=== PATIENT | female | born 1940 | race Caucasian/White ===

== ENCOUNTER 2016-07-24 06:32 | Inpatient (IN) | payer MEDICARE, BC ==
[2016-07-11 14:33] VITALS: BMI 40.3
[~2016-07-24 06:32] MED LIST: HYDROmorphone 1 MG/ML 1 ML SYRINGE IVP PRN; LIDOCAINE 1% 20 ML VIAL (10MG/ML) FOR IV START INTRADERMA PRN; MIDAZOLAM 2 MG/2 ML VIAL IV PRN
[2016-07-24] MEDS: LACTATED RINGERS 1,000 ML IV SCH (07:24)
[2016-07-24] MEDS ORDERED: LIDOCAINE 1% 20 ML VIAL (10MG/ML) FOR IV START INTRADERMA ONE (07:25)
[2016-07-24] MEDS ORDERED: ONDANSETRON 4 MG/2 ML VIAL IVP ONE (07:28)
[2016-07-24 07:57] LABS: Glucose,Whole Blood 166 mg/dL (75-99)
[2016-07-24] MEDS ORDERED: GLYCOPYRROLATE 0.2 MG/ML 2 ML VIAL ONE (08:01)
[2016-07-24] MEDS ORDERED: WATER FOR INJECTION, STERILE 10 ML VIAL IV ONE (08:01)
[2016-07-24] MEDS ORDERED: ePHEDrine 50 MG/ML 1 ML AMP ONE (08:01)
[2016-07-24] MEDS ORDERED: ceFAZolin 1,000 MG VIAL ONE (08:01)
[2016-07-24] MEDS ORDERED: VECURONIUM 10 MG VIAL IV ONE (08:01)
[2016-07-24] MEDS ORDERED: HYDROmorphone (PF) 1 MG/ML ONE (08:01)
[2016-07-24] MEDS ORDERED: ALBUTEROL INHALER 60 PUFF/8 GM INHALER INHALATION ONE (08:01)
[2016-07-24] MEDS ORDERED: NEOSTIGMINE 1 MG/ML 10 ML VIAL ONE (08:01)
[2016-07-24] MEDS ORDERED: SODIUM CHLORIDE 0.9% IRRIG 1,000 ML BTL IRRIGATION ONE (08:01)
[2016-07-24] MEDS ORDERED: BUPIVACAIN-EPI 0.5%-1:200,000 30 ML VIAL ONE (08:01)
[2016-07-24] MEDS ORDERED: PROPOFOL 10 MG/ML 20 ML VIAL IV ONE (08:01)
[2016-07-24] MEDS ORDERED: MIDAZOLAM 2 MG/2 ML VIAL ONE (08:01)
[2016-07-24] MEDS ORDERED: POLYMYXIN B 500,000 UNIT VIAL ONE (08:01)
[2016-07-24] MEDS ORDERED: LIDOCAINE 1% INJ 10MG/ML (20 ML MDV) ONE (08:01)
[2016-07-24] MEDS ORDERED: SODIUM CHLORIDE 0.9% 100 ML BAG ONE (08:01)
[2016-07-24] MEDS ORDERED: BACITRACIN 50,000 UNIT VIAL ONE (08:01)
[2016-07-24] MEDS ORDERED: fentaNYL (PF) 50 MCG/ML 2 ML AMP ONE (08:01)
[2016-07-24] MEDS ORDERED: SUCCINYLCHOLINE CHLORIDE 100 MG/5 ML SYR IV ONE (08:01)
[2016-07-24] MEDS ORDERED: LIDOCAINE 0.5%-EPI 1:200,000 50 ML VIAL SQ ONE ×2 (08:03)
[2016-07-24] MEDS ORDERED: GELATIN SPONGE,ABSORB (LARGE) 1 EACH SPONGE TOPICAL ONE (08:03)
[2016-07-24] MEDS ORDERED: BUPIVACAIN-EPI 0.5%-1:200,000 30 ML VIAL SQ ONE (08:03)
[2016-07-24] MEDS ORDERED: THROMBIN (BOVINE) 5,000 UNIT VIAL TOPICAL ONE (08:03)
[2016-07-24] MEDS: ceFAZolin 2 GM in SODIUM CHLORIDE 0.9% 100 ML IVPB ONE ×2 (08:10→15:50)
[2016-07-24] MEDS: BACITRACIN 50,000 UNIT, POLYMYXIN B 500,000 UNIT in SODIUM CHLORIDE 0.9% IRRIGATIO 1,00... IRRIGATION ONE ×2 (08:47→15:50)
[2016-07-24] MEDS ORDERED: BENZOCAINE/MENTHOL LOZENG 1 EACH LOZENGE MUCOUS MEM PRN (10:17)
[2016-07-24] MEDS ORDERED: DIAZEPAM 5 MG TAB PO PRN (10:17)
[2016-07-24] MEDS ORDERED: HYDROmorphone 1 MG/ML 1 ML SYRINGE IVP PRN (10:17)
[2016-07-24] MEDS ORDERED: HYDROcodone/APAP 5-325MG 1 EACH TAB PO PRN ×2 (10:18→19:24)
[2016-07-24] MEDS ORDERED: IBUPROFEN 600 MG TAB PO PRN (10:18)
[2016-07-24] MEDS ORDERED: TRIMETHOBENZAMIDE 100 MG/ML 2 ML VIAL IM PRN (10:18)
--- NOTE | 2016-07-24 10:24 | P.OP ---
Date of Procedure: 07/24/16 Preoperative Diagnosis: Chronic low back pain and left lower extremity pain, degenerative disc disease, Successful neurostimulator trial placement Postoperative Diagnosis: Same Anesthesia: GETA Pathology: none sent Condition: stable Disposition: PACU Description of Procedure: DESCRIPTION OF PROCEDURE(S): BRIEF OPERATIVE NOTE Preoperative Diagnosis: Chronic low back pain and lower extremity pain Successful neurostimulator trial Degenerative disc disease Scoliosis Postoperative Diagnosis:Same Procedure: Laminectomy at T9 10 placement of neurostimulator device from T7 to T10 Placement of battery pack through separate incision at left gluteal area Use of C-arm guidance Surgeon: Dr. Grimes Botanical Technical Officer: Jimbo Medrano is present throughout the entire the case persistence during positioning, dissection, exposure, visualization, and all crucial elements of the case as well as closure. Anesthesia: General anesthesia Estimated blood loss:Approximate 75 mL Complications: None apparent Components implanted:[employer] neurostimulator for column surgical paddle with rechargeable battery pack Disposition: To recovery room in good stable condition. OPERATIVE INDICATIONS The patient has been having issues in their lower back and lower extremities. She has long history of lumbar spine issues and lower extremity issues. The patient has history of scoliosis and chronic low back pain with degenerative disc disease. The patient has been through conservative treatment. She has been through multiple rehab programs. She has been through extensive intervention conservative management including placement of a neurostimulator trial device. She had good results with the neurostimulator trial with significant relief of her pain symptoms at her back and her lower extremities and was interested in pursuing permanent paddle lead of her neurostimulator. We discussed various treatment options including surgery, and the patient wishes to proceed with surgery We discussed the risk, patient's alternatives and benefits of surgery including but not limited to, risk of bleeding risk of infection, risk of need for further surgery, risk of decreased, loss of motion, loss of function, nerve damage, paralysis, heart attack, blindness and . OPERATIVE SUMMARY After discussing all the risks, patient alternatives and benefits at length, the patient elected to proceed with surgical intervention, signed informed consent, and presented for their procedure. The patient was seen and examined in the preoperative holding area and the surgical site was marked. The patient was given antibiotics and brought to the operating room. The patient was sedated and intubated by anesthesia in standard fashion. The patient was positioned on to the operating room table in a prone position on the appropriate frame which was well-padded and well molded. We were careful to pad any bony prominences and pressure points. We were careful to maintain the patient's cervical spine and good neutral alignment and position throughout. The patient was prepped and draped in a normal standard fashion. An appropriate timeout and keystone protocol performed. We were able to proceed with the surgery. Fluoroscopy was utilized to establish the appropriate level. The local wound area was infiltrated with local anesthetic. C-arm was used to establish the appropriate levels at her thoracic and lumbar spine. We're able to easily counted up the spinal levels and establish a incision site over T9 10. An incision made longitudinally over the appropriate levels and dissection was taken down subcutaneously to the level of fascia which was then split at the midline. Dissection was taken over the lamina and intraoperative fluoroscopy was utilized to establish the appropriate level with a marker. With the appropriate level positively confirmed as able to establish a laminectomy with accommodation of curettes, Kerrison rongeurs, and a matchstick drill. The wound was copiously irrigated and suctioned dry as had been done periodically throughout the case. I performed a laminectomy with a combination of curettes and a high-speed bur and [place]ison rongeurs. Portions of the ligamentum flavum were taken down to expose the dura. I was able to establish a channel to establish the pedicle device placement. I used a hockey stick type soft dissection device at the epidural space to establish position. The position was checked with C-arm and found to be in good alignment and good position at the midline. I was able to then use the permanent nurse to ri later paddle and place it through the laminectomy site at the epidural space dorsally and extend cephalad. C-arm images were taken which showed good midline position. I was able to manipulate the paddle lead to the appropriate position behind T7 down to T9. Imaging was checked multiple times to establish appropriate alignment and position of the paddle lead near midline at the appropriate levels to the disc at T6 7 and at The top of T7 and extending down behind T8 to T9. We had good position near the midline just off to the left. There is no evidence of dural tear or leak. Good hemostasis maintained. The wound was copiously irrigated and suctioned dry. I then place the appropriate anchors over the wires. They were tightened down appropriately. And I used transosseous and trans-ligamentous suture to anchor the leads down at the spinous process. There were checked and found to be stable. Images were again taken which showed good alignment and good position without any movement. I then turned my attention to the placement for the battery pack. A small incision was made over the left gluteal area approximately 4 cm in length and a subcutaneous pocket was established approximately 1 cm deep to the skin level. The wound was copiously irrigated and suctioned dry. We have good hemostasis. I tested the battery pack inside the pocket and it had good fit without any tension. I used appropriate tunneling device to establish a subcu tunnel from the battery pack site up to the thoracic incision site. The wires were passed and cleaned and placed into the battery pack appropriately all of the wires were torqued down appropriately and secured. The battery pack was placed into the pocket and tested and found to have good function. The wounds were irrigated and suctioned dry. The wires were coiled appropriately placed behind the battery pack and the battery pack was placed in the pocket. We'll proceed with closure at that space. The wires at the thoracic area were coiled at the subcutaneous space and place the cup subcutaneous space where a close that appropriately as well. Final images were taken which showed excellent alignment and position of the paddle lead and a full circuit to the battery pack. We were able to proceed with closure. The fascia was closed for a watertight closure. The subcuticular tissue was closed with absorbable suture. The wounds was cleaned and dried and dressed with the appropriate dressing. The drapes were broken down. The patient was gently rolled back onto their hospital bed being careful to maintain their cervical spine and good neutral alignment and position. They were woken up by anesthesia, extubated, and brought to the recovery room in good stable condition. The patient will be admitted to the hospital for observation and for appropriate postoperative care, medical management and monitoring. We will continue to follow them closely about the postoperative course.
--- NOTE | 2016-07-24 11:12 | FL ---
FLUOROSCOPY 46 seconds of fluoroscopy time were utilized during placement of a neural stimulator. 3 images docume nt the procedure.
[2016-07-24] MEDS ORDERED: LABETALOL SYRINGE 5 MG/ML IVP ONE (11:21)
[2016-07-24 11:38] LABS: Glucose,Whole Blood 205 mg/dL (75-99)
[2016-07-24] MEDS: SODIUM CHLORIDE 0.9% 1,000 ML IV SCH ×2 (11:40→23:30)
[2016-07-24] MEDS: HYDROmorphone 1 MG/ML 1 ML SYRINGE IVP PRN ×3 (13:33→23:30)
[2016-07-24] MEDS: HYDROcodone/APAP 5-325MG 1 EACH TAB PO PRN ×2 (15:41→21:50)
[2016-07-24] MEDS: ceFAZolin 2 GM in SODIUM CHLORIDE 0.9% 100 ML IVPB SCH ×2 (15:46→23:30)
[2016-07-24] MEDS ORDERED: DOCUSATE 100 MG CAP PO PRN (19:24)
[2016-07-24] MEDS ORDERED: MECLIZINE 25 MG TAB PO PRN (19:24)
[2016-07-24] MEDS ORDERED: ONDANSETRON 4 MG TAB PO PRN (19:24)
[2016-07-24] MEDS ORDERED: CALCITRIOL 0.25 MCG CAP PO SCH (19:30)
[2016-07-24] MEDS: ALBUTEROL NEBULIZED 2.5 MG/3 ML INHALATION SCH (20:37)
[2016-07-24] MEDS: CALCIUM ACETATE 667 MG CAP PO SCH ×2 (21:39→22:09)
[2016-07-24] MEDS: ALPRAZolam 0.25 MG TAB PO SCH (21:51)
[2016-07-24] MEDS: ATORVASTATIN 80 MG TAB PO SCH (22:07)
[2016-07-24] MEDS: GABAPENTIN 100 MG CAP PO SCH (22:08)
[2016-07-24] MEDS: CALCITRIOL 0.25 MCG CAP PO SCH (22:10)
[2016-07-24] MEDS: HEPARIN SODIUM,PORCINE 5,000 UNIT/ML 1 ML VIAL SQ SCH (22:13)
[2016-07-24] MEDS: INSULIN LISPRO (humaLOG) 300 UNIT/3 ML VIAL SQ SCH (22:13)
[2016-07-25] MEDS: HYDROmorphone 1 MG/ML 1 ML SYRINGE IVP PRN (06:01)
[2016-07-25] MEDS: LEVOTHYROXINE 137 MCG TAB PO SCH (06:01)
[2016-07-25] MEDS: ALBUTEROL NEBULIZED 2.5 MG/3 ML INHALATION SCH ×3 (07:08→19:16)
[2016-07-25 07:20] LABS: Basophils # (A) 0.1 k/uL (0-0.2); Basophils % (A) 1 %; CH 29.1; CHCM 32.4; Eosinophils % (A) 0 %; HDW 2.86; HGB 10.8 gm/dL (11.4-16.0); Luc # (Auto) 0.12; Luc % (Auto) 1; Lymphocytes # (A) 1.4 k/uL (1.0-4.8); Lymphocytes % (A) 11 %; MCH 28.5 pg (25.0-35.0); MCHC 31.6 g/dL (31.0-37.0); MCV 90.3 fL (80.0-100.0); Mean Platelet Volume 7.4; Monocytes # (A) 0.7 k/uL (0-1.0); Monocytes % (A) 6 %; Neutrophils # (A) 10.1 k/uL (1.3-7.7); Neutrophils % (A) 81 %; RBC 3.77 m/uL (3.80-5.40); RDW 14.4 % (11.5-15.5); WBC 12.4 k/uL (3.8-10.6); WBC (Perox) 13.17
[2016-07-25 07:34] LABS: Calcium 8.8 mg/dL (8.4-10.2); Potassium 4.2 mmol/L (3.5-5.1)
--- NOTE | 2016-07-25 08:20 | CONS ---
DATE OF CONSULTATION: REASON FOR CONSULTATION: Advice regarding COPD and other medical issues requested by Dr. Grimes. HISTORY OF PRESENT ILLNESS: This 76-year-old woman with a past medical history of COPD, history of diabetes mellitus, history of DVT, GERD, hyperlipidemia, hypertension, sleep apnea, history of heart murmur, history of cardiac catheterization and hysterectomy being followed by Dr. Garces in the outpatient setting and patient was admitted after laminectomy and placement of neurotransmitter device from T7 to T10, placement of battery pack through a separate incision gluteal area using C-arm guidance. There is no history of any fevers. No history of headache, loss of consciousness or seizures. PAST MEDICAL HISTORY: COPD, diabetes mellitus, DVT, history of GERD, hyperlipidemia, hypertension, history of sleep apnea, hypothyroidism, hysterectomy, history of anxiety and depression, not otherwise specified. Medications prior to admission include home medications are: 1. Albuterol 2.5 q.i.d. and p.r.n. 2. Fentanyl patch 50 mcg q.72 hours. 3. Calcitriol 0.5 Friday, Friday, Friday, , Friday. 4. PhosLo 667 p.o. t.i.d. 5. Lipitor 80 mg q.h.s. 6. Antivert 25 mg t.i.d. p.r.n. 7. Lantus 30 units subcu q.a.m. 8. NovoLog FlexPen p.r.n. 9. Zofran 4 mg t.i.d. p.r.n. 10. [place] 5 mg b.i.d. p.r.n. 11. Dok 100 mg daily. 12. Synthroid 137 mcg p.o. daily. 13. Prilosec 40 mg p.o. daily. 14. Xanax 0.25 mg p.o. t.i.d. 15. Nifedipine ER 60 mg p.o. daily. 16. Neurontin 100 mg p.o. t.i.d. 17. Hydrocodone 5 mg q.8 p.r.n. ALLERGIES: ACETAMINOPHEN, CODEINE, MEPERIDINE, MORPHINE and PROPOXYPHENE. FAMILY HISTORY: History of cancer and DVT in the family. SOCIAL HISTORY: No history of smoking, no history alcohol intake. REVIEW OF SYSTEMS: ENT: No diminished hearing or vision. CARDIOVASCULAR SYSTEM: No angina or palpitations. RESPIRATORY: As mentioned earlier.. GI: No nausea. : No dysuria. NERVOUS SYSTEM: No numbness or weakness. ALLERGY/IMMUNOLOGY: No asthma or hayfever. MUSCULOSKELETAL: As mentioned earlier. HEMATOLOGY/ONCOLOGY: noted ENDOCRINE: Hypothyroidism and diabetes. CONSTITUTIONAL: As mentioned earlier. DERMATOLOGY: Negative. RHEUMATOLOGY: As mentioned earlier. PSYCHIATRY: As mentioned earlier. PHYSICAL EXAMINATION: The patient is alert and oriented x3. Pulse is 62, blood pressure 159/73, respirations 16, temperature 98 degrees, pulse ox 95% on room air. HEENT: Conjunctivae normal. NECK: No jugular venous distention. CARDIOVASCULAR: S1 and S2, muffled. RESPIRATORY: Breath sounds diminished at the bases. A few scattered rhonchi, no crackles. ABDOMEN: Soft, obese, nontender. No mass palpable. LEGS: No edema or no swelling. NERVOUS SYSTEM: Higher function as mentioned earlier. Moves all 4 limbs. No focal motor or sensory deficits. LYMPHATICS: No lymphadenopathy of neck, axillae or groin. SKIN: No ulcers, rashes or bleeding. LABS: Glucose 205. ASSESSMENT: 1. Status post laminectomy to be T9-10 and placement of neurotransmitter from T7 to T10 with placement of battery pack. 2. History of chronic obstructive pulmonary disease. 3. Diabetes mellitus type 2. 4. History of deep venous thrombosis. 5. History of gastroesophageal reflux disease. 6. Hypertension. 7. Hyperlipidemia. 8. Sleep apnea. 9. Hypothyroidism. 10. History of cardiac murmur. 11. History of constipation. 12. History of hysterectomy. 13. History of anxiety and depression, not otherwise specified. 14. FULL CODE. 15. Obesity with body mass index of 40.4. RECOMMENDATIONS AND DISCUSSION: This 76-year-old woman who presented with multiple complex medical issues. Will monitor the patient closely. Continue the current medications. Continue symptomatic treatment. Recommend resume the home medications. Otherwise DVT prophylaxis. Monitor blood sugars closely. Will follow the patient closely. The patient will be asked to follow up with the primary physician closely after discharge. Thank you Dr. Grimes for letting us participate in the care of this patient. [facility] MEDICAL CENTERSanjay
[2016-07-25] MEDS: CALCIUM ACETATE 667 MG CAP PO SCH ×3 (08:38→18:07)
[2016-07-25] MEDS: HYDROcodone/APAP 5-325MG 1 EACH TAB PO PRN ×3 (08:38→20:06)
[2016-07-25] MEDS: GABAPENTIN 100 MG CAP PO SCH ×3 (08:42→21:42)
[2016-07-25] MEDS: FLUoxetine HCL 20 MG CAP PO SCH (08:42)
[2016-07-25] MEDS: INSULIN LISPRO (humaLOG) 300 UNIT/3 ML VIAL SQ SCH ×4 (08:57→21:41)
[2016-07-25 09:03] LABS: Hemoglobin A1C 6.9 % (4.2-6.1)
[2016-07-25] MEDS: HEPARIN SODIUM,PORCINE 5,000 UNIT/ML 1 ML VIAL SQ SCH ×3 (09:05→23:34)
[2016-07-25] MEDS: INSULIN GLARGINE 100 UNIT/ML 10 ML VIAL SQ SCH (09:14)
[2016-07-25] MEDS: LACTATED RINGERS 1,000 ML IV SCH (09:16)
--- NOTE | 2016-07-25 10:14 | P.PN ---
Progress Note - Text Postoperative day #1 Patient is seen and examined today at bedside. Patient is having significant pain around her surgical site. She is having great difficulty with any mobilization and we're having some difficulty controlling her pain thus far. She denies nausea or vomiting. They tried to work with her to do some programming of the device yesterday but she was unable to do so she says because she was too tired. Physical Exam Afebrile with stable vital signs Abdomen is soft nontender. Chest has good excursion deep and space expiration The incision site is clean dry and intact. No erythema there is no purulence. There is no fluctuance there is no evidence of any infection at her back or her right gluteal area Extremities have not had neurologic change from prior to surgery. Calves and thighs were soft nontender without evidence of DVT. Assessment/Plan Postoperative day #1 status post laminectomy at T9 10 with placement of neurostimulator device and battery pack for her chronic back and lower extremity pain with a positive neurostimulator trial Patient is progressing quite slowly from her surgery. It is difficult to say if she has troubles with pain tolerance and general or if she is having severe spasms contributing to her symptoms at this point. Medicine is seeing her as well for management. The incisions. A be healing appropriately without evidence of any infection. Once her pain is controlled it is okay from a spine standpoint for her to be charged home but this will likely be today. We'll see how she is doing with her pain control tomorrow. We will continue to increase the patient's mobilization with therapy. We will continue pain control with oral or IV medications. We'll continue to follow patient closely.
[2016-07-25] MEDS: ALPRAZolam 0.25 MG TAB PO SCH ×3 (10:34→21:42)
[2016-07-25] MEDS: SODIUM CHLORIDE 0.9% 1,000 ML IV SCH ×3 (12:57→23:35)
[2016-07-25 13:05] LABS: Glucose,Whole Blood 142 mg/dL (75-99)
--- NOTE | 2016-07-25 15:44 | PN ---
DATE OF SERVICE: 07/25/2016 This 76-year-old woman was admitted with back surgery also had a history of chronic obstructive pulmonary disease. The patient also had history of renal failure, which is apparently steroid dependent and Dr. Lubin was giving steroids to patient temporarily previously. The creatinine was up to 10 according to her. Currently the new creatinine is 3.10. White count is 12.4. There is no history of fever, rigors, chills. No history of headache, loss of consciousness, seizures. PAST MEDICAL HISTORY: Reviewed. REVIEW OF SYSTEMS: CARDIOVASCULAR: No angina. RESPIRATORY: As mentioned earlier. GI: No nausea. : As mentioned earlier. NERVOUS SYSTEM: No numbness or weakness. Current medications reviewed and include [place] 5 mg, Ventolin, Motrin, Xanax, Lipitor, Cepacol, Rocaltrol, PhosLo, Valium, Colace, Prozac, Neurontin, Heparin, Dilaudid, Lantus, Lactated Ringers, Synthroid, Antivert, Procardia XL, Zofran, Tigan. PHYSICAL EXAMINATION: The patient is alert and oriented x3. Pulse 76, blood pressure 160/83, respirations 18, temperature 99 degrees, pulse ox 90% on room air. HEENT: Conjunctivae normal. NECK: No jugular venous distention. CARDIOVASCULAR: S1 and S2, muffled. RESPIRATORY: Breath sounds diminished at the bases. A few scattered rhonchi. No crackles. ABDOMEN: Soft, nontender. No mass palpable. LEGS: No edema, no swelling. NERVOUS SYSTEM: No focal deficits. BACK: Status post surgery. LABS: WBC 12, hemoglobin 10.8, creatinine is 3.10. ASSESSMENT: 1. Status post laminectomy T9 replacement of neurotransmitter for 7-10 with placement of battery pack. 2. History of chronic obstructive pulmonary disease. 3. Renal failure, possibly acute on chronic. 4. Diabetes mellitus type 2. 5. History of deep venous thrombosis. 6. History of gastroesophageal reflux disease. 7. Hypertension. 8. Hyperlipidemia. 9. Sleep apnea. 10. Hypothyroidism. 11. History of cardiac murmur. 12. History of constipation. 13. History of hysterectomy. 14. History of anxiety, depression, not otherwise specified. 15. Obesity, body mass index of 40.4. 16. FULL CODE. RECOMMENDATIONS AND DISCUSSION: I recommend to continue the current medications, continue monitoring and symptomatic treatment. Otherwise I recommend a UA with micro. Otherwise, repeat creatinine. Nephrology consultation if okay with Dr. Grimes. Otherwise, continue to monitor. Further recommendations to follow. MTDD
[2016-07-25 17:19] LABS: Glucose,Whole Blood 155 mg/dL (75-99)
[2016-07-25] MEDS: CALCITRIOL 0.25 MCG CAP PO SCH (18:07)
[2016-07-25] MEDS: ATORVASTATIN 80 MG TAB PO SCH (20:08)
[2016-07-25 21:27] LABS: Glucose,Whole Blood 169 mg/dL (75-99)
[2016-07-25 21:52] LABS: Appearance,Urine Clear (Clear); Bilirubin,Urine Negative (Negative); Glucose,Urine (UA) Negative (Negative); Ketones,Urine Negative (Negative); Leukocyte Esterase,Urine Small (Negative); Nitrite,Urine Negative (Negative); PH, Urine 5.5 (5.0-8.0); Particle Count 1313; Protein,Urine Trace (Negative); RBC,Urine 8 /hpf (0-5); Specific Gravity,Urine 1.008 (1.001-1.035); Squamous Epithelial Cell,Urine 3 /hpf (0-4); UA Billing (MACRO vs. MICRO) MICRO; Urobilinogen,Urine <2.0 mg/dL (<2.0); WBC,Urine 6 /hpf (0-5)
[2016-07-26] MEDS: HYDROcodone/APAP 5-325MG 1 EACH TAB PO PRN ×5 (02:36→21:42)
[2016-07-26] MEDS: LACTATED RINGERS 1,000 ML IV SCH (03:01)
[2016-07-26] MEDS: LEVOTHYROXINE 137 MCG TAB PO SCH (05:47)
[2016-07-26 07:13] LABS: Basophils # (A) 0.1 k/uL (0-0.2); Basophils % (A) 1 %; CH 29.3; CHCM 32.5; Eosinophils # (A) 0.2 k/uL (0-0.7); Eosinophils % (A) 2 %; HCT 32.5 % (34.0-46.0); HDW 2.74; HGB 10.2 gm/dL (11.4-16.0); Luc # (Auto) 0.12; Luc % (Auto) 1; Lymphocytes # (A) 1.9 k/uL (1.0-4.8); Lymphocytes % (A) 20 %; MCH 28.3 pg (25.0-35.0); MCHC 31.2 g/dL (31.0-37.0); MCV 90.8 fL (80.0-100.0); Mean Platelet Volume 7.8; Monocytes # (A) 0.8 k/uL (0-1.0); Monocytes % (A) 8 %; Neutrophils # (A) 6.5 k/uL (1.3-7.7); Neutrophils % (A) 68 %; RBC 3.58 m/uL (3.80-5.40); RDW 14.2 % (11.5-15.5); WBC 9.6 k/uL (3.8-10.6); WBC (Perox) 9.85
[2016-07-26 07:23] LABS: Calcium 8.6 mg/dL (8.4-10.2); Potassium 3.7 mmol/L (3.5-5.1)
[2016-07-26 07:28] LABS: Glucose,Whole Blood 126 mg/dL (75-99)
[2016-07-26] MEDS: INSULIN GLARGINE 100 UNIT/ML 10 ML VIAL SQ SCH (07:50)
[2016-07-26] MEDS: HEPARIN SODIUM,PORCINE 5,000 UNIT/ML 1 ML VIAL SQ SCH ×2 (07:51→17:02)
[2016-07-26] MEDS: GABAPENTIN 100 MG CAP PO SCH ×3 (07:53→20:51)
[2016-07-26] MEDS: FLUoxetine HCL 20 MG CAP PO SCH (07:53)
[2016-07-26] MEDS: ALPRAZolam 0.25 MG TAB PO SCH ×3 (07:53→20:56)
[2016-07-26] MEDS: CALCIUM ACETATE 667 MG CAP PO SCH ×3 (07:54→17:00)
[2016-07-26] MEDS: INSULIN LISPRO (humaLOG) 300 UNIT/3 ML VIAL SQ SCH ×4 (08:06→21:42)
[2016-07-26] MEDS: ALBUTEROL NEBULIZED 2.5 MG/3 ML INHALATION SCH ×3 (08:27→20:35)
--- NOTE | 2016-07-26 09:00 | P.PN ---
Progress Note - Text Orthopedic Spine Patient is a pleasant 76-year-old female who is seen and examined at the bedside following T9-10 laminectomy with neuro stimulator placement performed on Friday. Postsurgically, patient has significant difficulty with mobilization and pain at the surgical site. She states she has not been able to ambulate. She states she was ambulating previously without significant difficulty. Following surgery she has been a 2-3 person lift assist. She states she has continued to have significant pain at the surgical site. She states she is has difficulty staying awake as well. We discussed this most likely due to her pain medication following surgical intervention. She's been seen exam by Dr. Dickson gongora. It's also been discussed that she may need discharge to extended care facility prior to returning home. We'll plan to make her inpatient with plans for possible discharge this coming Friday, 2016. Patient also has been seen and examined by nephrology for further evaluation for her kidneys she had a creatinine level at 3.1 on 07/25/2016 and 2.97 on 07/26/2016. Physical therapy will continue to work with the patient to increase her mobility and ambulation. Currently does not complain of nausea, vomiting, fever, or chills. Patient states pain has been adequately controlled. Patient is eating and voiding freely without difficulty. Physical Exam Thoracolumbar Spine: Status post surgical day number 2 Patient is awake, alert, and oriented 3 Vital signs stable Good chest excursion with deep inspiration and expiration Abdomen soft nontender Dorsiflexion, plantarflexion, and extensor hallucis longus positive sustained bilaterally No signs or symptoms of DVT; no calf pain; pneumatic cuffs intact bilateral lower extremities Dressing is clean, dry, and intact; no erythema, purulence, or signs of infection over the thoracic spine and over the left hip Neurovascularly intact bilaterally lower extremities Assessment: Status post T9-10 laminectomy and neuro stimulator placement with battery pack placement over the left hip Thoracic back pain Difficulty with ambulation Plan: 1. Ambulate as tolerated; work with Physical Therapy to increase mobilization 2. Continue pain control with IV and oral medications 3. Dressing to remain intact over the thoracic spine and left hip; we will plan to change dressings prior to dicharge 4. Medical management and nephrology can continue to manage patient for patient 's other medical issues 5. We will continue to follow the patient closely; patient will most likely need rehab at discharge given her significant difficulty with mobility and ambulation postsurgically; we'll plan to change her status from 23 hour observation to inpatient status with plans for discharge this coming Friday, 03/2017 6. Patient can follow-up with Jimbo Palomares PA-C or Dr. Matthew Grimes at [facility] in 2-3 weeks following discharge 7. I have discussed this patient and detail with Dr. Matthew Grimes and he agrees with this plan
[2016-07-26 11:35] LABS: Glucose,Whole Blood 153 mg/dL (75-99)
--- NOTE | 2016-07-26 16:16 | PN ---
DATE OF SERVICE: 07/26/2016 This 76-year-old woman, who was admitted after laminectomy and back surgery, also had chronic obstructive pulmonary disease. Patient also had renal failure. Receiving IV fluids. With IV fluids creatinine is slightly improving at this time. The patient has been closely monitored. Patient had a steroid responsive kidney disease recently. PHYSICAL EXAMINATION: The patient is alert and oriented x3. Pulse is 60, blood pressure is 130/60, respirations 16, temperature 97 degrees, pulse ox 94% on room air. HEENT: Conjunctivae normal. NECK: No jugular venous distention. CARDIOVASCULAR: S1 and S2, muffled. RESPIRATORY: Breath sounds diminished at the bases. No rhonchi, no crackles. ABDOMEN: Soft, obese, nontender. No mass palpable. LEGS: No edema, no swelling. BACK: Status post surgery. LABS: Hemoglobin 10.2, creatinine is 2.97. Accu-Cheks are noted. UA noted. ASSESSMENT: 1. Status post laminectomy T9 and placement of neurotransmitter 7 to 10 with placement of battery pack. 2. History of chronic obstructive pulmonary disease. 3. Renal failure, possibly acute on chronic with chronic kidney disease stage III. 4. Steroid response renal failure. 5. Diabetes mellitus type 2. 6. History of deep venous thrombosis. 7. History of gastroesophageal reflux disease. 8. Hypertension. 9. Hyperlipidemia. 10. Sleep apnea. 11. Hypothyroidism. 12. History of cardiac murmur. 13. History of constipation. 14. History of hysterectomy. 15. History of anxiety and depression, not otherwise specified. 16. Obesity with a body mass index of 40.4. 17. FULL CODE. RECOMMENDATIONS AND DISCUSSION: This 76-year-old woman who presented with multiple complex medical issues, we will monitor the patient closely. Continue the current medications. Continue symptomatic treatment. Repeat labs. Continue the IV fluids. Nephrology evaluation. Closely follow with Orthopedic Surgery. The rest of the medications are recommended by Orthopedic Surgery. Further recommendations to follow.
[2016-07-26] MEDS: SODIUM CHLORIDE 0.9% 1,000 ML IV SCH ×2 (16:44→17:33)
[2016-07-26 16:57] LABS: Glucose,Whole Blood 116 mg/dL (75-99)
[2016-07-26] MEDS: CALCITRIOL 0.25 MCG CAP PO SCH (17:01)
--- NOTE | 2016-07-26 19:42 | CONS ---
DATE OF CONSULTATION: REASON FOR CONSULTATION: Renal failure. HISTORY OF PRESENT ILLNESS: Patient is a 76-year-old female who has a history of chronic kidney disease, NKF stage IV to V. She is status post laminectomy at T9 with placement of neurotransmitter and placement of battery pack. Patient is currently comfortable. Her baseline creatinine around 3 mg/dL. She follows with Dr. Gardner as outpatient. Currently she has good urine output. Patient is maintained on IV fluids. Her serum creatinine today was 2.97. PAST MEDICAL HISTORY: 1. CKD, stage IV to V, with a history of acute kidney injury requiring steroids. 2. Type 2 diabetes. 3. History of DVT. 4. History of gastroesophageal reflux disease. 5. Hypothyroidism. 6. Hysterectomy. 7. History of anxiety. 8. Depression. Medications prior to admission included: 1. Albuterol. 2. Calcitriol. 3. PhosLo. 4. Lipitor. 5. Antivert. 6. Insulin. 7. Zofran. 8. [place]. 9. Synthroid. 10. Prilosec. 11. Nifedipine. 12. Neurontin. 13. [place]. ALLERGIES include: 1. ACETAMINOPHEN. 2. CODEINE. 3. MEPERIDINE. 4. MORPHINE. 5. DEXTROPROPOXYPHENE. SOCIAL HISTORY: Negative for smoking, drug abuse or alcohol abuse. REVIEW OF SYSTEMS: Negative for fever, chills, nausea or vomiting. No significant chest pains or significant shortness of breath noted. Patient has good urine output. On examination, blood pressure is 145/63, heart rate 68 per minute. She is afebrile. EXAMINATION OF THE HEART: S1 and S2. EXAMINATION OF THE LUNGS: Bilateral breath sounds are heard. Decreased breath sounds in bases. ABDOMEN: Soft, nontender. Examination of lower extremities shows trace edema bilaterally. RESEARCH DEVELOPMENT MANAGER exam is grossly intact. Labs show sodium of 145, potassium 3.7, chloride 111, BUN 31, serum creatinine 2.97. Hemoglobin 10.2 grams/dL. ASSESSMENT: 1. Chronic kidney disease, stage IV to V. Renal function currently at baseline. Decrease IV fluids to avoid volume overload. 2. Status post T9-10 laminectomy with neurostimulator placement. 3. Chronic kidney disease bone mineral disorder, maintained on Rocaltrol, which we can continue. Serum calcium is at 8.6 mg/dL. 4. Anemia of chronic disease. PLAN: Decrease IV fluids. Continue to avoid nephrotoxic agents. Patient will follow up as outpatient once she is discharged from the hospital. Once good oral intake is maintained, we will discharge the IV fluids. Thank you for this consultation.
[2016-07-26] MEDS: ATORVASTATIN 80 MG TAB PO SCH (20:51)
[2016-07-26 21:22] LABS: Glucose,Whole Blood 215 mg/dL (75-99)
[2016-07-27] MEDS: HEPARIN SODIUM,PORCINE 5,000 UNIT/ML 1 ML VIAL SQ SCH ×4 (00:27→23:29)
[2016-07-27] MEDS: HYDROcodone/APAP 5-325MG 1 EACH TAB PO PRN ×4 (05:13→19:46)
[2016-07-27] MEDS: LEVOTHYROXINE 137 MCG TAB PO SCH (05:13)
--- NOTE | 2016-07-27 06:44 | P.PN ---
Subjective Principal diagnosis: Status post T9 10 laminectomy with neurostim placement This is a pleasant 76-year-old female who is status post T9 10 laminectomy with neural stimulator placement. Today's postoperative day #3. The patient is seen and evaluated at bedside today. She apparently has been having some difficulty with ambulation. At this point they're planning for rehab placement due to her difficulties with mobilization. She seen and evaluated at bedside. She has no new complaints. She states that she still having difficulty walking. She otherwise has no other new complaints at this time. Objective - Vital Signs Vital signs: Vital Signs Temp 98.2 F 07/27/16 02:49 Pulse 66 07/27/16 02:49 Resp 14 07/27/16 02:49 BP 135/61 07/27/16 02:49 Pulse Ox 94 L 07/27/16 02:49 Intake & Output 07/26/16 07/26/16 07/27/16 06:59 18:59 06:59 Intake Total 1800 1280 630 Output Total 200 450 Balance 1600 830 630 Weight 113.398 kg Intake: Intake, IV Titration 1800 1040 630 Amount Sodium Chloride 0.9% 1, 1800 1040 630 000 ml @ 70 mls/hr IV . [id number] [facility] Rx#:[id number] Oral 240 Output: Urine 200 450 Other: Voiding Method Bedside Commode Bedside Commode # Voids 1 1 2 - Exam The patient is alert and orientated 3. Vital signs are stable. Breathing appears nonlabored. Dressing is clean dry and intact with no signs of drainage. She has sustained dorsal flexion, plantar flexion extensor hallux longus. She is able to lift each leg up off the bed. Sensation and circulatory status is intact to the patient's lower extremities. - Labs CBC & Chem 7: 07/26/16 06:43 07/26/16 06:43 Labs: Abnormal Lab Results - Last 24 Hours (Table) 07/26/16 07/26/16 07/26/16 Range/Units 06:43 06:43 07:23 RBC 3.58 L (3.80-5.40) m/uL Hgb 10.2 L (11.4-16.0) gm/dL Hct 32.5 L (34.0-46.0) % Chloride 111 H (98-107) mmol/L BUN 31 H (7-17) mg/dL Creatinine 2.97 H (0.52-1.04) mg/dL Glucose 129 H (74-99) mg/dL POC Glucose (mg/dL) 126 H (75-99) mg/dL 07/26/16 07/26/16 07/26/16 Range/Units 11:32 16:55 21:19 RBC (3.80-5.40) m/uL Hgb (11.4-16.0) gm/dL Hct (34.0-46.0) % Chloride (98-107) mmol/L BUN (7-17) mg/dL Creatinine (0.52-1.04) mg/dL Glucose (74-99) mg/dL POC Glucose (mg/dL) 153 H 116 H 215 H (75-99) mg/dL Assessment and Plan Plan: The patient is status post T9 10 laminectomy with neurostim placement. She is having difficulty with ambulation at this point. She is to continue physical therapy to increase her mobilization. Continue with pain control. Plan for transfer to rehab likely on Friday.
[2016-07-27 07:27] LABS: Basophils % (A) 1 %; CH 29.4; CHCM 32.4; Eosinophils # (A) 0.4 k/uL (0-0.7); Eosinophils % (A) 4 %; HCT 32.4 % (34.0-46.0); HDW 2.82; HGB 10.2 gm/dL (11.4-16.0); Luc % (Auto) 1; Lymphocytes # (A) 1.2 k/uL (1.0-4.8); Lymphocytes % (A) 14 %; MCH 28.7 pg (25.0-35.0); MCHC 31.5 g/dL (31.0-37.0); MCV 91.3 fL (80.0-100.0); Mean Platelet Volume 7.9; Monocytes # (A) 0.6 k/uL (0-1.0); Monocytes % (A) 6 %; Neutrophils # (A) 6.8 k/uL (1.3-7.7); Neutrophils % (A) 74 %; RBC 3.54 m/uL (3.80-5.40); RDW 14.4 % (11.5-15.5); WBC 9.1 k/uL (3.8-10.6); WBC (Perox) 9.21
[2016-07-27 07:32] LABS: Glucose,Whole Blood 109 mg/dL (75-99)
[2016-07-27 07:32] LABS: Calcium 8.6 mg/dL (8.4-10.2); Potassium 3.7 mmol/L (3.5-5.1)
[2016-07-27] MEDS: ALBUTEROL NEBULIZED 2.5 MG/3 ML INHALATION SCH ×3 (08:21→21:28)
[2016-07-27] MEDS: CALCIUM ACETATE 667 MG CAP PO SCH ×3 (09:37→16:09)
[2016-07-27] MEDS: INSULIN GLARGINE 100 UNIT/ML 10 ML VIAL SQ SCH (09:37)
[2016-07-27] MEDS: FLUoxetine HCL 20 MG CAP PO SCH (09:37)
[2016-07-27] MEDS: ALPRAZolam 0.25 MG TAB PO SCH ×3 (09:37→19:46)
[2016-07-27] MEDS: GABAPENTIN 100 MG CAP PO SCH ×3 (09:37→19:47)
--- NOTE | 2016-07-27 10:05 | P.PN ---
Progress Note - Text Postoperative day #3 Patient is seen and examined today at bedside. The patient has some pain around the surgical site as expected but she is very slow with her mobility. Pain is being controlled with medication, but she is taking significant amount with her chronic issues and had has been difficult to wean her down. She is not able to sit up independently or stand independently. She feels that she is in a fall whenever she tries to stand up and even transfer to commode. She requiring maximal assist with multiple people every time she tries to stand. Physical Exam Afebrile with stable vital signs Abdomen is soft nontender. Chest has good excursion deep and space expiration The incision site is clean dry and intact. No erythema there is no purulence. There is no evidence of any infection at her back or her right gluteal area Extremities have not had neurologic change from prior to surgery. Calves and thighs were soft nontender without evidence of DVT. Her labs are reviewed. Her creatinine is 2.7 Assessment/Plan Postoperative day #3 status post laminectomy at T9 10 with placement of neurostimulator device for chronic back pain and lower extremity pain with a successful neurostimulator trial. Patient is progressing very slowly from the surgery. This difficult to determine her level of effort but she is starting to make some sort of changes today with her willingness to move and participate in activity. We will try to encourage this significantly with a staph and with our discussions. She seems understand that she needs to improve her mobilization and needs to be motivated to try to move. We will continue to increase the patient's mobilization with therapy. We will continue pain control with oral or IV medications. Chronic renal insufficiency with acute exacerbation which seems to be stabilizing. She is continuing monitored by medicine and nephrology. We'll continue to follow patient closely.
[2016-07-27] MEDS: SODIUM CHLORIDE 0.9% 1,000 ML IV SCH (10:19)
[2016-07-27] MEDS: INSULIN LISPRO (humaLOG) 300 UNIT/3 ML VIAL SQ SCH ×4 (10:21→22:12)
--- NOTE | 2016-07-27 11:56 | P.PN ---
Subjective Patient is seen in follow-up for chronic kidney disease. 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 Recently her creatinine has been near 3 and is a little better at 2.72 today. She underwent a T9 laminectomy and is currently working with physical therapy. Denies any chest pain or shortness of breath. Admits to good urine output. No vomiting or diarrhea. Vital signs are stable. General: The patient appeared well nourished and normally developed. HEENT: Head exam is unremarkable. Neck is without jugular venous distension. LUNGS: Lungs are clear to auscultation and percussion. Breath sounds decreased. HEART: Rate and Rhythm are regular. First and second heart sounds normal. No murmurs, rubs or gallops. ABDOMEN: Abdominal exam reveals normal bowel sounds. Non-tender and non- distended. No evidence of peritonitis. EXTREMITITES: Trace edema. Objective - Vital Signs Vital signs: Vital Signs Temp 98 F 07/27/16 07:00 Pulse 68 07/27/16 08:34 Resp 19 07/27/16 07:00 BP 134/67 07/27/16 07:00 Pulse Ox 94 L 07/27/16 08:23 Intake & Output 07/26/16 07/27/16 07/27/16 18:59 06:59 18:59 Intake Total 1280 630 240 Output Total 450 Balance 830 630 240 Intake: Intake, IV Titration 1040 630 Amount Sodium Chloride 0.9% 1, 1040 630 000 ml @ 70 mls/hr IV . [id number] [facility] Rx#:[id number] Oral 240 240 Output: Urine 450 Other: Voiding Method Bedside Commode # Voids 1 2 - Labs CBC & Chem 7: 07/27/16 06:41 07/27/16 06:41 Labs: Abnormal Lab Results - Last 24 Hours (Table) 07/26/16 07/26/16 07/27/16 Range/Units 16:55 21:19 06:41 RBC 3.54 L (3.80-5.40) m/uL Hgb 10.2 L (11.4-16.0) gm/dL Hct 32.4 L (34.0-46.0) % Chloride (98-107) mmol/L Carbon Dioxide (22-30) mmol/L BUN (7-17) mg/dL Creatinine (0.52-1.04) mg/dL Glucose (74-99) mg/dL POC Glucose (mg/dL) 116 H 215 H (75-99) mg/dL 07/27/16 07/27/16 Range/Units 06:41 07:16 RBC (3.80-5.40) m/uL Hgb (11.4-16.0) gm/dL Hct (34.0-46.0) % Chloride 111 H (98-107) mmol/L Carbon Dioxide 20 L (22-30) mmol/L BUN 27 H (7-17) mg/dL Creatinine 2.72 H (0.52-1.04) mg/dL Glucose 106 H (74-99) mg/dL POC Glucose (mg/dL) 109 H (75-99) mg/dL Assessment and Plan Plan: Assessment: #1. Chronic kidney disease stage IV secondary to diabetic kidney disease and ALLERGIC interstitial nephritis in the past. Baseline creatinine is now closer to 3. #2. Status post T9-10 laminectomy with neurostimulator placement. #3. Chronic kidney disease mineral bone disease. #4. Anemia of chronic kidney disease. #5. Insulin-dependent diabetes mellitus. Plan: Hep-Lock IV fluids. Encourage oral intake. Avoid nephrotoxic agents and hypotensive episodes. Maintain PhosLo with meals. Maintain calcitriol. Continue physical therapy.
[2016-07-27 12:55] LABS: Glucose,Whole Blood 144 mg/dL (75-99)
--- NOTE | 2016-07-27 16:06 | PN ---
DATE OF SERVICE: 07/27/2016 This 76 -year-old woman was admitted after back surgeries also having significant renal failure. No palpitation. No fever. Creatinine is back to baseline according to Dr. Gardner. No fever. No cough. On exam, alert and oriented x3. Pulse is 72, blood pressure 134/66, respiratory rate 19, temperature 98 degrees, pulse ox 97% on room air. HEENT: Conjunctivae normal. NECK: No jugular venous distention. CARDIOVASCULAR: S1, S2 muffled. RESPIRATORY: Breath sounds diminished at the bases. No rhonchi. No crackles. ABDOMEN: Soft, obese, nontender. LEGS: No edema. No swelling. CENTRAL NERVOUS SYSTEM: No focal deficits. BACK: Examination of the back status post surgery. LABS: WBC 9.9, hemoglobin 10.2, creatinine is 2.72. ASSESSMENT: 1. Status post laminectomy and as well as placement of neurotransmitter 7 to 10 with placement of battery pack. 2. Chronic obstructive pulmonary disease. 3. Renal failure, possibly acute on chronic with chronic kidney disease Stage 3. 4. History of renal failure. 5. Diabetes mellitus type 2. 6. History of deep venous thrombosis. 7. History of gastroesophageal reflux disease. 8. Hypertension. 9. Hyperlipidemia. 10. Increased history of sleep apnea. 11. Hypothyroidism. 12. History of cardiac murmur. 13. History of constipation. 14. History of hysterectomy. 15. History of anxiety, depression, not otherwise specified. 16. Obesity, body mass index 40.4. 17. FULL CODE. RECOMMENDATIONS AND DISCUSSION: Recommend to continue current medications, continue with monitoring, symptomatic treatment. Otherwise, at this time, I recommend to continue current medications, continue symptomatic treatment. Otherwise, closely follow with orthopedic surgery. DVT prophylaxis. Avoid nephrotoxic medications. Stop IV fluids and continue to monitor. PT, OT evaluation and possible ECF rehab. Further recommendations to follow. MADONNAD
[2016-07-27 17:25] LABS: Glucose,Whole Blood 154 mg/dL (75-99)
[2016-07-27] MEDS: ATORVASTATIN 80 MG TAB PO SCH (19:47)
[2016-07-27 21:43] LABS: Glucose,Whole Blood 178 mg/dL (75-99)
[2016-07-28 01:17] VITALS: BP 163/69; RESP 16; TEMP 98
[2016-07-28] MEDS: HYDROcodone/APAP 5-325MG 1 EACH TAB PO PRN ×2 (06:21→11:59)
[2016-07-28] MEDS: LEVOTHYROXINE 137 MCG TAB PO SCH (06:21)
[2016-07-28] MEDS: ALBUTEROL NEBULIZED 2.5 MG/3 ML INHALATION SCH (07:15)
[2016-07-28] MEDS: GABAPENTIN 100 MG CAP PO SCH (07:24)
[2016-07-28] MEDS: ALPRAZolam 0.25 MG TAB PO SCH (07:24)
[2016-07-28] MEDS: CALCIUM ACETATE 667 MG CAP PO SCH ×2 (07:24→11:59)
[2016-07-28] MEDS: FLUoxetine HCL 20 MG CAP PO SCH (07:24)
[2016-07-28 07:27] VITALS: PULSE 68
[2016-07-28 07:28] LABS: Basophils % (A) 0 %; CH 29.1; CHCM 32.5; Eosinophils # (A) 0.5 k/uL (0-0.7); Eosinophils % (A) 6 %; HDW 2.82; HGB 10.8 gm/dL (11.4-16.0); Luc # (Auto) 0.13; Luc % (Auto) 1; Lymphocytes # (A) 1.5 k/uL (1.0-4.8); Lymphocytes % (A) 16 %; MCH 28.5 pg (25.0-35.0); MCHC 31.7 g/dL (31.0-37.0); MCV 89.8 fL (80.0-100.0); Mean Platelet Volume 6.9; Monocytes # (A) 0.6 k/uL (0-1.0); Monocytes % (A) 6 %; Neutrophils % (A) 71 %; RBC 3.78 m/uL (3.80-5.40); RDW 14.5 % (11.5-15.5); WBC 9.8 k/uL (3.8-10.6); WBC (Perox) 10.64
[2016-07-28 07:34] LABS: Glucose,Whole Blood 89 mg/dL (75-99)
[2016-07-28] MEDS: INSULIN LISPRO (humaLOG) 300 UNIT/3 ML VIAL SQ SCH ×2 (07:34→12:00)
[2016-07-28] MEDS: HEPARIN SODIUM,PORCINE 5,000 UNIT/ML 1 ML VIAL SQ SCH (07:34)
[2016-07-28 07:40] LABS: Calcium 9.2 mg/dL (8.4-10.2); Potassium 3.9 mmol/L (3.5-5.1)
[2016-07-28] MEDS: INSULIN GLARGINE 100 UNIT/ML 10 ML VIAL SQ SCH (10:00)
[2016-07-28] MEDS ORDERED: FUROSEMIDE 10 MG/ML 4 ML VIAL IV STA ×2 (11:06→11:20)
--- NOTE | 2016-07-28 11:09 | P.DS ---
Providers Date of admission: 07/26/16 09:01 Expected date of discharge: 07/28/16 Attending physician: Joan Grimes Consults: 07/24/16 16:38 Consult Physician Routine Consulting Provider: Evelio Gardner Consult Reason/Comments: High creatinine, CRF Do you want consulting provider notified?: Yes 07/25/16 15:05 Consult Physician Routine Consulting Provider: Niki Forman Consult Reason/Comments: medical management Do you want consulting provider notified?: Already Contacted Primary care physician: Rakan Mcdonald [facility] Course: This is a 76-year-old female who is been having issues in her lower back and lower extremities. She has long-standing history of lumbar spine issues. After course of conservative treatment and multiple rehab programs further discussion of various treatments were outlined. She elected to proceed with surgical intervention and was admitted to [facility] on 07/24/2015. She underwent laminectomy at T9 10 with placement of neurostimulator device. She had difficulty with mobilization initially postoperatively. Extended-care facility was being considered. She was requiring maximal assist apparently. Today she is doing much better. She's been up ambulating to the restroom. Nursing staff states that she's not required assistance at this time. She would like to consider discharge to home today. She has no new complaints at this time. Incision site is clean dry and intact. She has sustained dorsiflexion, plantar flexion extensor hallux longus. Sensation and circulatory status is intact. She is to continue with mobilization. If she is able to ambulate without assistance and she may be discharged to home today if cleared by her consultants. She agrees with the plan of care. Pertinent Studies: Laboratory Tests 07/28/16 06:37 WBC 9.8 RBC 3.78 L Hgb 10.8 L Hct 34.0 MCV 89.8 MCH 28.5 Patient Condition at Discharge: Fair Plan - Discharge Summary New Discharge Prescriptions: HYDROcodone/APAP 5-325MG [[place] 5-325] 1 tab PO Q8HR PRN #90 tab PRN Reason: Pain Discharge Medication List ALPRAZolam [Xanax] 0.25 mg PO TID 07/11/16 [History] Albuterol Nebulized [Ventolin Nebulized] 2.5 mg INHALATION RT-TID 07/11/16 [ History] Atorvastatin Calcium [Lipitor] 80 mg PO HS 07/11/16 [History] Calcitriol 0.5 mcg PO MOTUWETHFR 07/11/16 [History] Calcium Acetate [Phoslo] 667 mg PO TID 07/11/16 [History] Docusate Sodium [Dok] 100 mg PO DAILY PRN 07/11/16 [History] FLUoxetine HCL [PROzac] 40 mg PO DAILY 07/11/16 [History] Gabapentin [Neurontin] 100 mg PO TID 07/11/16 [History] HYDROcodone/APAP 5-325MG [[place] 5-325] 1 tab PO BID PRN 07/11/16 [History] Insulin Aspart [NovoLOG Flexpen] See Protocol SQ AC-TID 07/11/16 [History] Insulin Glargine [Lantus] 30 unit SQ QAM 07/11/16 [History] Levothyroxine Sodium [Synthroid] 137 mcg PO DAILY 07/11/16 [History] Meclizine [Antivert] 25 mg PO TID PRN 07/11/16 [History] NIFEdipine [NIFEdipine ER] 60 mg PO DAILY 07/11/16 [History] Ondansetron HCl [Zofran] 4 mg PO TID PRN 07/11/16 [History] fentaNYL 50MCG/HR PATCH [Duragesic 50MCG/HR] 1 patch TRANSDERM Q72H 07/11/16 [ History] HYDROcodone/APAP 5-325MG [[place] 5-325] 1 tab PO Q8HR PRN #90 tab 07/24/16 [Rx] Follow up Appointment(s)/Referral(s): Joan Grimes DO [Doctor of Osteopathic Medicine] - 08/09/16 10:30 am (Please arrange for [employer] neurostimulator fraud representative to be present at the appointment) Activity/Diet/Wound Care/Special Instructions: Keep site clean. May shower with waterproof dressing intact. Do not soak in a tub. On Friday May remove dressings and then may shower with area is uncovered. Keep Steri-Strips intact and allow them to fray off on their own. Avoid heavy or rigorous activity. No repetitive bending twisting or lifting. Discharge Disposition: HOME SELF-CARE
--- NOTE | 2016-07-28 11:20 | P.PN ---
Subjective Patient is seen in follow-up for chronic kidney disease. 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 Recently her creatinine has been near 3 and is stable at 2.7 today. She underwent a T9 laminectomy and is currently working with physical therapy. Denies any chest pain or shortness of breath. Admits to good urine output. No vomiting or diarrhea. Does admit to lower extremity swelling. Vital signs are stable. General: The patient appeared well nourished and normally developed. HEENT: Head exam is unremarkable. Neck is without jugular venous distension. LUNGS: Lungs are clear to auscultation and percussion. Breath sounds decreased. HEART: Rate and Rhythm are regular. First and second heart sounds normal. No murmurs, rubs or gallops. ABDOMEN: Abdominal exam reveals normal bowel sounds. Non-tender and non- distended. No evidence of peritonitis. EXTREMITITES: Trace edema. Objective - Vital Signs Vital signs: Vital Signs Temp 98.0 F 07/28/16 01:00 Pulse 68 07/28/16 07:26 Resp 16 07/28/16 01:00 BP 163/69 07/28/16 01:00 Pulse Ox 96 07/28/16 01:00 Intake & Output 07/27/16 07/28/16 07/28/16 18:59 06:59 18:59 Intake Total 840 630 360 Balance 840 630 360 Intake: Intake, IV Titration 630 Amount Sodium Chloride 0.9% 1, 630 000 ml @ 70 mls/hr IV . [id number] [facility] Rx#:[id number] Oral 840 360 Other: Voiding Method Bedside Commode # Voids 3 2 1 - Labs CBC & Chem 7: 07/28/16 06:37 07/28/16 06:37 Labs: Abnormal Lab Results - Last 24 Hours (Table) 07/27/16 07/27/16 07/27/16 Range/Units 12:47 17:14 21:14 RBC (3.80-5.40) m/uL Hgb (11.4-16.0) gm/dL Chloride (98-107) mmol/L BUN (7-17) mg/dL Creatinine (0.52-1.04) mg/dL POC Glucose (mg/dL) 144 H 154 H 178 H (75-99) mg/dL 07/28/16 07/28/16 Range/Units 06:37 06:37 RBC 3.78 L (3.80-5.40) m/uL Hgb 10.8 L (11.4-16.0) gm/dL Chloride 110 H (98-107) mmol/L BUN 27 H (7-17) mg/dL Creatinine 2.70 H (0.52-1.04) mg/dL POC Glucose (mg/dL) (75-99) mg/dL Assessment and Plan Plan: Assessment: #1. Chronic kidney disease stage IV secondary to diabetic kidney disease and ALLERGIC interstitial nephritis in the past. Baseline creatinine is now closer to 3. #2. Status post T9-10 laminectomy with neurostimulator placement. #3. Chronic kidney disease mineral bone disease. #4. Anemia of chronic kidney disease. #5. Insulin-dependent diabetes mellitus. Plan: Hep-Lock IV fluids. Lasix 40 mg IV once today. Encourage oral intake. Avoid nephrotoxic agents and hypotensive episodes. Maintain PhosLo with meals. Maintain calcitriol. Continue physical therapy.
[2016-07-28 11:46] LABS: Glucose,Whole Blood 116 mg/dL (75-99)
--- NOTE | 2016-07-29 12:57 | PN ---
DATE OF SERVICE: 07/28/2016 This is a 76-year-old woman who was admitted after laminectomy as well as placement of neurotransmitter, also renal failure. The patient improved significantly. No chest pain, no palpitation. seen. No fever. The creatinine is stabilized at per Nephrology. On exam, alert and oriented x3, pulse 69, blood pressure 116/69, respirations 16, temperature 98 degrees, pulse ox of 97% on room air. HEENT: Conjunctivae normal. NECK: No jugular venous distension. CARDIOVASCULAR: S1, S2, muffled. RESPIRATORY: Breath sounds diminished at the bases, a few scattered rhonchi, no crackles. ABDOMEN: Soft, obese. NERVOUS SYSTEM: No focal deficits. BACK: Status post surgery. LABS: Hemoglobin 10.8, creatinine is 2.70. ASSESSMENT: 1. Status post laminectomy as well as placement of neurotransmitter with the placement of battery pack. 2. Chronic obstructive pulmonary disease. 3. Renal failure, possibly acute on chronic renal failure with chronic kidney disease, stage III. 4. History of steroid response with renal failure. 5. Diabetes mellitus type 2. 6. History of deep venous thrombosis. 7. History of gastroesophageal reflux disease. 8. Hypertensions. 9. Hyperlipidemia. 10. History of sleep apnea. 11. Hypothyroidism. 12. History of cardiac prominence. 13. History of constipation. 14. History of hysterectomy. 15. History of anxiety, depression, not otherwise specified. 16. Obesity with a body mass index of 41. 17. FULL CODE. RECOMMENDATION: Recommend to continue with current medications, continue with monitoring and symptomatic treatment. Otherwise, at this time I would recommend resume the home medications, monitor creatinine closely, closely follow with primary physician in the outpatient setting. Further recommendations to follow.
== END 2016-07-28 13:56 | DRG 518 ==
LOC: OR 06:32 → 3SUR 10:32 → OR 07-26 09:01
PROVIDERS: ADMIT Orthopaedic Surgery Orthopaedic Surgery of the Spine; ATTEND Orthopaedic Surgery Orthopaedic Surgery of the Spine
PROC: 0JH70EZ Insertion of Multiple Array Rechargeable Stimulator Generator into Back Subcutaneous Tissue and Fascia, Open Approach (ICD-10-PCS; principal; 2016-07-26)
PROC: 00HU0MZ Insertion of Neurostimulator Lead into Spinal Canal, Open Approach (ICD-10-PCS; 2016-07-26)
DX: M54.6 Pain in thoracic spine (principal); N18.4 Chronic kidney disease, stage 4 (severe); J44.9 Chronic obstructive pulmonary disease, unspecified; E11.22 Type 2 diabetes mellitus with diabetic chronic kidney disease; M41.9 Scoliosis, unspecified; D63.1 Anemia in chronic kidney disease; M51.16 Intervertebral disc disorders with radiculopathy, lumbar region; I12.9 Hypertensive chronic kidney disease with stage 1 through stage 4 chronic kidney disease, or unspecified chronic kidney disease; M47.817 Spondylosis without myelopathy or radiculopathy, lumbosacral region; E03.9 Hypothyroidism, unspecified; E78.5 Hyperlipidemia, unspecified; G47.30 Sleep apnea, unspecified; G89.29 Other chronic pain; K21.9 Gastro-esophageal reflux disease without esophagitis; N32.81 Overactive bladder; F41.9 Anxiety disorder, unspecified; F32.9 Major depressive disorder, single episode, unspecified; R26.2 Difficulty in walking, not elsewhere classified; Z86.718 Personal history of other venous thrombosis and embolism; Z90.710 Acquired absence of both cervix and uterus; Z79.4 Long term (current) use of insulin; Z79.891 Long term (current) use of opiate analgesic; Z79.899 Other long term (current) drug therapy
CPT/HCPCS: 80048; 81001; 81025; 83036; 85025; 86850; 86900; 86901; 94640; 94760